=== PATIENT | female | born 1955 | race Caucasian/White ===

== ENCOUNTER 2020-06-26 12:42 | Emergency (ER) | payer SELFPAY ==
[2020-06-26 13:50] LABS: CHLORIDE 101 mEq/L (98-107)
[2020-06-26] MEDS ORDERED: PREDNISONE 20MG TABLET PO ONE (16:00)
[2020-06-26] MEDS ORDERED: LEVOFLOXACIN 250MG TABLET PO ONE (16:00)
[2020-06-26 16:39] VITALS: BP 143/85
== END 2020-06-26 16:49 | disposition home or self-care (01) ==
LOC: ER 12:42
DX: U07.1 COVID-19 (principal); J12.82 Pneumonia due to coronavirus disease 2019; R03.0 Elevated blood-pressure reading, without diagnosis of hypertension
CPT/HCPCS: 36415; 71045; 80053; 83605; 83880; 84484; 86850; 86900; 93005; 99285